=== PATIENT | female | born 1970 | race Caucasian/White ===

== ENCOUNTER 2020-05-12 11:26 | Emergency (ER) | payer OTHER ==
[~2020-05-12 11:26] MED LIST: AUGMENTIN 875-1 EACH PO; LODINE CAP 300300 MG PO; NORCO 5-325 TA1 EACH PO
[2020-05-12] MEDS ORDERED: IBUPROFEN600 MG PO (13:23)
== END 2020-05-12 13:28 | disposition home or self-care (01) ==
LOC: ER1 11:26
DX: M79.662 Pain in left lower leg (principal); F17.200 Nicotine dependence, unspecified, uncomplicated; Z85.3 Personal history of malignant neoplasm of breast; Z98.890 Other specified postprocedural states; Z88.1 Allergy status to other antibiotic agents
CPT/HCPCS: 73590; 93971; 99284

== ENCOUNTER → 2021-08-09 | Outpatient (CLI) | payer OTHER ==
[~2021-08-09] MED LIST changes: +IBUPROFEN600 MG PO
== END ==
LOC: HEART 5 14:49
DX: J44.9 Chronic obstructive pulmonary disease, unspecified (principal)
CPT/HCPCS: 94010; 94729

== ENCOUNTER → 2022-01-21 | Outpatient (CLI) | payer OTHER | LOC: SLEEP 14:23 | DX: J44.9 Chronic obstructive pulmonary disease, unspecified (principal); Z79.891 Long term (current) use of opiate analgesic; G47.33 Obstructive sleep apnea (adult) (pediatric) | CPT/HCPCS: 95811 ==